=== PATIENT | female | born 1995 | race Caucasian/White ===

== ENCOUNTER → 2020-08-13 | Outpatient (CLI) | payer OTHER ==
--- NOTE | 2020-08-13 16:45 | RAD ---
Pelvic ultrasound History: Pelvic pain, left ovarian cyst Comparison: None. Findings: Multiple transabdominal sonographic images of the pelvis are submitted. Uterus measured 7.4 x 3.3 x 5 cm. Endometrium measured 0.8 cm. Left ovary measured 3 x 4.7 x 3.3 cm. There is a septated hypoechoic lesion of the left ovary 2.6 x 2 x 1.7 cm in size. There is normal color flow and low resistance vascularity of the left ovary, no significant hypervascularity associated with the cystic lesion. Right ovary measured 4 x 2.3 x 2.6 cm with normal color flow and low resistance vascularity. There is a small hypoechoic lesion of the right ovary about 2 x 1.5 x 1.6 cm, not associated with significant internal vascularity on color Doppler imaging. No significant free fluid is demonstrated. Impression: 1. There is septated left ovarian cyst up to 2.6 cm. There is a right ovarian cyst about 2 cm. Electronically signed by: Iron Healy MD (08/13/2020 4:42 PM) [facility]
== END ==
LOC: US 15:49
PROVIDERS: ATTEND Obstetrics & Gynecology
DX: N83.292 Other ovarian cyst, left side (principal); N83.201 Unspecified ovarian cyst, right side
CPT/HCPCS: 76856

== ENCOUNTER → 2020-09-12 | Outpatient (CLI) | payer OTHER ==
--- NOTE | 2020-09-13 03:52 | RAD ---
EXAM: Pelvic ultrasound HISTORY: Follow-up ovarian lesions. COMPARISON: 08/13/2020. FINDINGS: Sonographic evaluation of the pelvis was performed transabdominally and transvaginally. The uterus is anteverted and measures 7.7 x 4.5 x 3.4 cm. The endometrial stripe measures 8 mm. No masses are identified. There is no significant free fluid. The right ovary measures 3.6 x 3.7 x 2.4 cm. Physiologic follicles measure up to 1.6 cm. The left ovary measures 3.0 x 2.4 x 2.2 cm. Left ovarian follicles measure up to 1.8 cm. There is normal Doppler flow bilaterally. There are no suspicious lesions. IMPRESSION: 1. Physiologic ovarian follicles. No suspicious lesions. Electronically signed by: Abhinav Garcia MD (09/13/2020 3:49 AM) [facility]
== END ==
LOC: US 16:18
PROVIDERS: ATTEND Obstetrics & Gynecology
DX: N83.292 Other ovarian cyst, left side (principal); N83.291 Other ovarian cyst, right side
CPT/HCPCS: 76830; 76856